=== PATIENT | male | born 1990 | race Two or more races ===

== ENCOUNTER 2017-01-08 17:39 | Emergency (ER) | payer OTHER ==
--- NOTE | 2017-01-08 17:49 | ED Physician Chart ---
Chief Complaint/HPI - Patient Information Date Seen:: 01/08/17 Time Seen:: 17:30 Chief Complaint:: left toe infection History of Present Illness:: pt stubbed toe some weeks ago with partial toenail avulsion. now increasingly red, painful and swollen. ?fever. pt denies any other acute sx. Allergies:: sulfa. ?emesis with keflex? Historian:: Patient, Family Member Review:: Nurse's Note Reviewed Review of Systems - Review of Systems General/Constitutional: Other (all other ROS negative) Past Medical History - Past Medical History Family History: HTN Social History: Smoker, Alcohol, Single, Lives With Parents Surgical History: other (ortho) Psychiatricy History: None Medication: None Physical Exam - Physical Examination General/Constitutional: Awake, Well-developed, well-nourished, Alert, GCS 15, Non-toxic appearing, Ambulatory (VSS. physical exam findings are limited to the left great toe which has a loose toenail but still fairly attached. there is localized redness, mild swelling, and tenderness. the feet have terrible hygiene with foul smell and dirty skin. no other toes are infected and there is no necrosis or ulceration.) Other Extremities comments:: the left great toe doesnt appear deformed or angulated andf there is no ecchymoses. Assessment - Assessment General Assessment: left great toe cellulitis vs inflammation secondary to recent trauma. ED Septic Shock - . Is Septic Shock (SBP<90, OR Lactate>4 mmol\L) present?: No Reassessment (Disposition) - Reassessment Reassessment Condition:: Unchanged - Diagnosis Diagnosis:: left great toe cellulitis - Aftercare/Follow up Instructions Aftercare/Follow-Up Instructions:: Refer to Discharge Instructions, Counseled pt & family regarding lab results/diagnosis & need follow up (urged cleaning toe and keeping feet clean in future, clean sox would be beneficial, or open toed shoe. do not attempt to remove nail. see clinic doctor for routine followup.) Medication Prescribed:: clindamycin 300mg tid with food x 7 days - Patient Disposition Discharge/Transfer:: Home Condition at Disposition:: Stable ED Discharge Plan - Patient Disposition Admit/Discharge/Transfer: PT DISCHARGED HOME Condition at Disposition: Stable
== END 2017-01-08 18:12 | disposition home or self-care (01) ==
LOC: ER 17:39
DX: L03.032 Cellulitis of left toe (principal); I10 Essential (primary) hypertension; F17.200 Nicotine dependence, unspecified, uncomplicated; Z88.2 Allergy status to sulfonamides
CPT/HCPCS: Z7502

== ENCOUNTER 2017-03-27 21:26 | Emergency (ER) | payer OTHER ==
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
== END 2017-03-27 23:03 | disposition home or self-care (01) ==
LOC: ER 21:26
DX: T63.301A Toxic effect of unspecified spider venom, accidental (unintentional), initial encounter (principal); Y92.89 Other specified places as the place of occurrence of the external cause; F17.200 Nicotine dependence, unspecified, uncomplicated
CPT/HCPCS: 99284; 96372 ×2; 87070; Q0162; J0690; J2270; Z7502

== ENCOUNTER 2017-05-12 10:45 | Emergency (ER) | payer OTHER ==
[2017-05-12] MEDS ORDERED: APAP/Codeine 300 mg/30 mg Tab PO STA (11:39)
[2017-05-12] MEDS ORDERED: Amoxicillin/Clavulanat 875/125 Tab PO ONE (12:01)
[2017-05-12] MEDS ORDERED: APAP/Codeine 300 mg/30 mg Tab ONE (12:04)
[2017-05-12] MEDS ORDERED: Amoxicillin/Clavulanat 875/125 Tab ONE (12:04)
[2017-05-12 12:19] LABS: ANION GAP 9.3 (7.0-16.0); BUN - UREA NITROGEN 10 mg/dL (7-25); BUN/CREATININE RATIO 12.5; CALCIUM SERUM 9.6 mg/dL (8.6-10.3); CARBON DIOXIDE 31.9 mEq/L (21.0-31.0); CHLORIDE 99 mEq/L (98-107); CREATININE - SERUM 0.8 mg/dL (0.7-1.3); GLUCOSE 138 mg/dL (70-105); POTASSIUM SERUM 4.2 mEq/L (3.5-5.1); SODIUM SERUM 136 mEq/L (136-145)
[2017-05-12 12:23] LABS: % BASOPHILS 0.2 % (0.0-2.0); % EOSINOPHILS 1.1 % (0.0-5.0); % LYMPHOCYTES 18.2 % (20.0-50.0); % MONOCYTES 7.5 % (2.0-10.0); HEMATOCRIT 49.2 % (41.0-60); HEMOGLOBIN 16.4 gm/dL (12-16); MEAN CELL VOLUME 92.7 fl (80-99); MEAN CORPUSCULAR HEMOGLOBIN 30.9 pg (26.0-30.0); MEAN CORPUSCULAR HGB CONC 33.3 pg (28.0-36.0); MEAN PLATELET VOLUME 7.8 fl; NEUTROPHILE ABSOLUTE 8.1 Th/cmm (1.8-8.0); PLATELET COUNT 299 Th/cmm (150-400); RED BLOOD COUNT 5.31 Mil/cmm (4.30-5.70)
[2017-05-12] MEDS ORDERED: Amoxicillin/Clavulanat 875/125 Tab PO SCH (17:00)
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
== END 2017-05-12 12:37 | disposition home or self-care (01) ==
LOC: ER 10:45
DX: K05.10 Chronic gingivitis, plaque induced (principal); F20.9 Schizophrenia, unspecified
CPT/HCPCS: 36415-UA; 80048-TC; 83735-TC; 85025-TC; Z7502; Z7610

== ENCOUNTER 2017-10-07 14:30 | Inpatient (IN) | payer OTHER ==
[2017-10-07] MEDS ORDERED: Clindamycin 600mg/50mL 600 MG/50 ML BAG IV ONE (15:06)
[2017-10-07] MEDS ORDERED: Pantoprazole 40 mg EC Tab PO STA (15:07)
[2017-10-07] MEDS ORDERED: Sodium Chloride 0.9% 1,000 ML IV ONE (15:08)
[2017-10-07 15:29] LABS: % BASOPHILS 0.4 % (0.0-2.0); % EOSINOPHILS 2.1 % (0.0-5.0); % LYMPHOCYTES 21.3 % (20.0-50.0); % NEUTROPHILS 69.2 % (40.0-80.0); EOSINOPHILE ABSOLUTE 0.2 Th/cmm (0.1-0.4); HEMATOCRIT 42.3 % (41.0-60); HEMOGLOBIN 13.9 gm/dL (12-16); LYMPHOCYTE ABSOLUTE 1.8 Th/cmm (1.5-3.0); MEAN CELL VOLUME 90.7 fl (80-99); MEAN CORPUSCULAR HEMOGLOBIN 29.7 pg (26.0-30.0); MEAN CORPUSCULAR HGB CONC 32.8 pg (28.0-36.0); MEAN PLATELET VOLUME 7.6 fl; MONOCYTE ABSOLUTE 0.6 Th/cmm (0.3-1.0); NEUTROPHILE ABSOLUTE 5.7 Th/cmm (1.8-8.0); PLATELET COUNT 280 Th/cmm (150-400); RED BLOOD COUNT 4.67 Mil/cmm (4.30-5.70); RED CELL DISTRIBUTION WIDTH 12.4 % (11.5-20.0); WHITE BLOOD COUNT 8.3 Th/cmm (4.8-10.8)
[2017-10-07] MEDS ORDERED: Clindamycin 150 mg/mL 4mL Vial ONE (15:36)
[2017-10-07] MEDS ORDERED: Pantoprazole 40 mg EC Tab PO ONE (15:36)
[2017-10-07 15:41] LABS: ALB/GLOB RATIO 1.6 (1.0-1.8); ALBUMIN 4.1 gm/dL (4.2-5.5); ALKALINE PHOSPHATASE 48 U/L (34-104); ANION GAP 8.7 (7.0-16.0); BILIRUBIN,TOTAL 0.6 mg/dL (0.3-1.0); BUN - UREA NITROGEN 10 mg/dL (7-25); CALCIUM SERUM 9.4 mg/dL (8.6-10.3); CARBON DIOXIDE 25.4 mEq/L (21.0-31.0); CHLORIDE 104 mEq/L (98-107); CREATININE - SERUM 0.7 mg/dL (0.7-1.3); GFR AFRICAN-AMERICAN > 60.0 ml/min (>90); GFR NON AFRICAN-AMERICAN > 60.0 ml/min; GLUCOSE 114 mg/dL (70-105); POTASSIUM SERUM 3.1 mEq/L (3.5-5.1); SGOT 11 U/L (13-39); SGPT/ALT 11 U/L (7-52); SODIUM SERUM 135 mEq/L (136-145); TOTAL PROTEIN,SERUM 6.7 gm/dL (6.0-8.3)
[2017-10-07] MEDS ORDERED: Piperacillin Sodium/Tazobact 3.375 gm Vial IV ONE (15:47)
[2017-10-07] MEDS ORDERED: Potassium Chloride 20 mEq ER Tab PO ONE ×2 (16:03→16:29)
[2017-10-07 16:20] LABS: ALB/GLOB RATIO 1.9 (1.0-1.8); BILIRUBIN,DIRECT 0.16 mg/dL (0.0-0.2); BILIRUBIN,TOTAL 0.2 mg/dL (0.3-1.0); TOTAL PROTEIN,SERUM 6.1 gm/dL (6.0-8.3)
[2017-10-07] MEDS ORDERED: Potassium Chloride Elixir 20 mEq /15 mL UDC ONE (16:27)
[2017-10-07 19:28] LABS: URINE MICROSCOPIC INDICATED? YES; URINE SOURCE MIDSTREAM
[2017-10-07 19:31] LABS: URINE BILIRUBIN NEGATIVE (NEGATIVE); URINE BLOOD NEGATIVE (NEGATIVE); URINE GLUCOSE (UA) NEGATIVE (NEGATIVE); URINE KETONE NEGATIVE (NEGATIVE); URINE LEUKOCYTE ESTERASE NEGATIVE (NEGATIVE); URINE NITRATE NEGATIVE (NEGATIVE); URINE PH 6.5 (4.6 - 8.0); URINE PROTEIN NEGATIVE (NEGATIVE); URINE UROBILINOGEN 0.2 E.U./dL (0.2 - 1.0)
[2017-10-07 20:18] LABS: AMPHETAMINE URINE POSITIVE (NEGATIVE); CANNABINOID THC POSITIVE (NEGATIVE); METHAMPHETAMINES QUAL URINE POSITIVE (NEGATIVE)
[2017-10-07 20:19] LABS: BARBITURATES URINE NEGATIVE (NEGATIVE); BENZODIAZEPINES QUAL URINE NEGATIVE (NEGATIVE); COCAINE METABOLITE QUAL URINE NEGATIVE (NEGATIVE); METHADONE URINE NEGATIVE (NEGATIVE); OPIATES (MORPHINE) QUAL. URINE NEGATIVE (NEGATIVE); PHENCYCLIDINE (PCP) URINE NEGATIVE (NEGATIVE); TRICYCLICS (TCA) QUAL. URINE NEGATIVE (NEGATIVE)
[2017-10-07 21:28] LABS: A1C % 4.9 % (4.0-6.0)
[2017-10-07] MEDS ORDERED: Morphine Sulfate 2 mg/mL 1mL Syr IVP PRN (22:32)
--- NOTE | 2017-10-07 23:26 | Consultation ---
Consult Note - Consult Note Service Date: 10/07/17 Referring Physician: Anselmo Medina Consult Note: PHYSICIAN Consultation Note: Date of Admission: 10/07/17 Purpose of Consultation: b/l hand cellulitis Chief Complaint: Patient KANDY PENN was admitted to [facility] with LEFT HAND CELLULITIS. History of Present Illness: 27-year-old old male preesented for erythematous painful swelling of the ring finger of the both hands with pustules developed in last 7 days and were getting worse. On initial evaluation, his temperature was 98 degree F and WBC Count was 8,300. ID consult was called for antibiotic management. He had received vanco IV and Zosyn in the ER. Past Medical History: nonsignificant. Allergies Allergy/AdvReac Type Severity Reaction Status Date / Time Sulfa (Sulfonamide Allergy Verified 01/08/17 17:50 Antibiotics) Vital Signs Temp 98.4 F 10/07/17 21:25 Pulse 82 10/07/17 21:25 Resp 19 10/07/17 21:25 BP 115/67 10/07/17 21:25 Pulse Ox 98 10/07/17 21:25 Laboratory Results - last 24 hr 10/07/17 22:50 POC Glucose 133 H Home Medication Medication Instructions Recorded Type NK [No Home Meds] 10/07/17 History Current Medications Generic Name Dose Route Start Last Admin Trade Name Freq PRN Reason Stop Dose Admin Dextrose/Sodium Chloride 1,000 mls @ 75 mls/hr 10/07/17 22:45 D5-0.9%Ns IV 12/06/17 22:44 .[id number] HALLEY Vancomycin HCl 1 gm/ Sodium 250 mls @ 165 mls/hr 10/08/17 00:00 Chloride IV 10/08/17 01:30 ONCE ONE Miscellaneous 1 ea 10/07/17 22:29 Vancomycin Iv Per Pharmacy [facility] 12/06/17 22:28 PRN PRN PROTOCOL Morphine Sulfate 1 mg 10/07/17 22:32 Morphine IVP 12/06/17 22:31 Q4HR PRN pain Ondansetron HCl 4 mg 10/07/17 22:34 Zofran IV 12/06/17 22:33 Q6H PRN Nausea / Vomiting Review of Systems: A 12 point ROS was reviewed with the pertinent positive and negatives noted in the HPI. Physical Exam: GENERAL: The patient is comfortable lying in bed, not in acute distress. HEENT: Head is normocephalic, atraumatic. Oral cavity moist, pink tongue. Eyes: Pallor is present, no icterus. PERRLA, EOMI. NECK: Supple. No JVD or bruit. Trachea midline. CHEST: Bilateral breath sounds. No crackles or wheezing. HEART: S1, S2 within normal limits. Systolic murmur present. ABDOMEN: Soft, nontender, nondistended. Bowel sounds present. EXTREMITIES: No cyanosis, no clubbing, no edema. NEUROLOGICAL: Alert, awake, oriented x 3. Follows the command. SKIN: patient has pustules on the ring fingers of both hands. the pus was sent for the micro from respective sites. Left had erythema has extended to the adjacent area of the left hand. Assessment: 1. b/l hand cellulitis likely MRSA, MSSA or strep. 2. H/o recreations drug use. Plan: wound cs, blood cs, Dr Huynh, surgical consult. vanco IV as per pharmacy. wound care. bactroban. Thank you, Dr Medina for involving me in taking care of this patient. Signed, Aldo Sesay M.D. [id number]
[2017-10-07] MEDS ORDERED: Morphine Sulfate 2 mg/mL 1mL Syr ONE (23:56)
[2017-10-08] MEDS: D5-0.9%NS 1,000 ML IV SCH ×2 (00:18→14:19)
[2017-10-08 00:31] VITALS: BP 115/67
[2017-10-08 05:14] LABS: % BASOPHILS 0.4 % (0.0-2.0); % LYMPHOCYTES 24.3 % (20.0-50.0); % NEUTROPHILS 61.3 % (40.0-80.0); EOSINOPHILE ABSOLUTE 0.3 Th/cmm (0.1-0.4); HEMATOCRIT 38.9 % (41.0-60); HEMOGLOBIN 12.9 gm/dL (12-16); LYMPHOCYTE ABSOLUTE 1.8 Th/cmm (1.5-3.0); MEAN CELL VOLUME 90.8 fl (80-99); MEAN CORPUSCULAR HGB CONC 33.1 pg (28.0-36.0); MEAN PLATELET VOLUME 7.6 fl; MONOCYTE ABSOLUTE 0.7 Th/cmm (0.3-1.0); NEUTROPHILE ABSOLUTE 4.6 Th/cmm (1.8-8.0); PLATELET COUNT 256 Th/cmm (150-400); RED BLOOD COUNT 4.28 Mil/cmm (4.30-5.70); RED CELL DISTRIBUTION WIDTH 12.5 % (11.5-20.0); WHITE BLOOD COUNT 7.4 Th/cmm (4.8-10.8)
[2017-10-08 05:24] LABS: ANION GAP 7.3 (7.0-16.0); BUN - UREA NITROGEN 7 mg/dL (7-25); CALCIUM SERUM 8.7 mg/dL (8.6-10.3); CARBON DIOXIDE 24.4 mEq/L (21.0-31.0); CHLORIDE 110 mEq/L (98-107); CHOLESTEROL 72 mg/dL (<200); CREATININE - SERUM 0.6 mg/dL (0.7-1.3); GFR AFRICAN-AMERICAN > 60.0 ml/min (>90); GFR NON AFRICAN-AMERICAN > 60.0 ml/min; GLUCOSE 106 mg/dL (70-105); HDL -HIGH DENSITY LIPOPROTEIN 29 mg/dL (23-92); POTASSIUM SERUM 3.7 mEq/L (3.5-5.1); SODIUM SERUM 138 mEq/L (136-145); TRIGLYCERIDES 45 mg/dL (<150)
--- NOTE | 2017-10-08 08:46 | Consultation ---
DATE OF CONSULTATION: 10/08/2017 SURGICAL CONSULTATION NOTE REFERRING PHYSICIAN: Dr. Medina. REASON FOR CONSULTATION: Infection in both hands. Thank you for referring this patient to me. HISTORY OF PRESENT ILLNESS: This is a 27-year-old homeless male, who comes in to the ER because of worsening infection in both hands present for about a week. The patient has been seen by Dr. Aldo Sesay, Infectious Disease business solutions consultant and started on antibiotics. He has history of amphetamine and cannabis use and is shown positive on the drug screen. LABORATORY STUDIES: CBC is normal. PHYSICAL EXAMINATION: areas of abscess formation on the right middle finger and the right thumb and on the left middle finger. This has purulent content under the skin evidenced by pustule formation. Otherwise, the patient is cooperative. PLAN: We will do excisional debridement and identify the organisms, which is likely methicillin-resistant Staphylococcus aureus. Informed consent discussed with the patient. JOB# [id number]
[2017-10-08 09:17] LABS: URINE CLARITY CLEAR (CLEAR); URINE COLOR YELLOW
[2017-10-08 09:19] LABS: URINE EPITHELIAL CELLS OCCASIONAL /lpf (FEW); URINE WBC 0-2 /hpf (0-5)
--- NOTE | 2017-10-08 09:20 | Diagnostic Imaging Report ---
CHEST X-RAY: AP view INDICATION: pain COMPARISON: None FINDINGS: Suboptimal lung volumes are noted. There is no focal consolidation or pleural effusions . An azygos fissure is incidentally noted. The heart is normal in size. The osseous structures demonstrate no acute abnormalities. IMPRESSION: No focal consolidation identified.
[2017-10-08] MEDS ORDERED: Propofol 10 mg/mL 20mL Vial **SURGERY USE ONLY IV ONE (12:05)
--- NOTE | 2017-10-08 12:35 | Diagnostic Imaging Report ---
Carotid ultrasound HISTORY: Syncope COMPARISON: None Technique: Longitudinal and transverse sonographic sector images of the carotid arteries were obtained with doppler analysis. FINDINGS: Exam of the right side demonstrates mild atherosclerotic vascular disease. There is increased velocity of the proximal right common carotid artery at 165 cm/second. Exam of the left side demonstrates mild joint athetotic vascular disease. There is increased velocity of the left proximal common carotid artery 137 cm/second. The velocity ratios are within normal limits. Antegrade vertebral artery flow is demonstrated bilaterally. IMPRESSION: Mild bilateral atherosclerotic vascular disease. There is are mild increased velocity of the bilateral proximal CCAs which is nonspecific, as no significant vessel narrowing is identified in these region or other regions.
[2017-10-08] MEDS ORDERED: Venelex 60gm Tube TP ONE (12:54)
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
--- NOTE | 2017-10-08 16:45 | Cardiology ---
10/07/[address] Trujillo. PROCEDURE: Echocardiogram. M-MODE ECHOCARDIOGRAM: Mitral valve, anterior leaflet of mitral valve shows normal excursion, EF velocity. Posterior leaflet of the mitral valve shows normal excursion. Left ventricular posterior wall shows increased thickness, normal excursion. Interventricular septum shows increased thickness, normal excursion, hypertrophy of the left ventricle, ejection fraction 65%. Left atrium normal. Aortic root shows normal dimension, normal excursion of aortic leaflets. CONCLUSION: Hypertrophy of the left ventricle, ejection fraction 65%. 2D ECHO: Long axis view showed normal sized left ventricle with hypertrophy of the left ventricle. Left atrium normal. Aortic root shows normal dimension, normal excursion of aortic leaflets. Short axis view of mitral valve normal. Short axis view of aortic valve normal. Apical four chamber view showed normal sized left ventricle, left atrium, right ventricle, right atrium, tricuspid and mitral valve. Ejection fraction 65%. CONCLUSION: Hypertrophy of the left ventricle, ejection fraction 65%. Doppler study shows trace mitral regurgitation, mild tricuspid regurgitation, right ventricular systolic pressure 41 mmHg. [facility]# [id number]
--- NOTE | 2017-10-08 18:30 | History & Physical ---
ADMIT DATE: 10/07/2017 HISTORY AND PHYSICAL AND MEDICAL CLEARANCE HISTORY OF PRESENT ILLNESS: This 27-year-old homeless male, comes to the Emergency Room with worsening infection of his both hands for about a week and the patient has been abusing drugs. He has been using crystal meth and he has been using marijuana, which were positive on his drug screen. The patient is not taking care of himself and he presented to the ER with multiple ulcerated wounds on the dorsum of his hand and he particularly had this painful swelling on his right ring finger, a pustule developed 7 days ago, and it is getting worse. Initially, the patient was seen in the Emergency Room by the ER doctor, who started him on vancomycin and Zosyn. The patient was examined. REVIEW OF SYSTEMS: A 12-point review of systems was noted as in the history of present illness. PHYSICAL EXAMINATION: VITAL SIGNS: Stable. GENERAL: The patient is comfortable, lying in the bed, not in acute distress. HEAD: Normal. ENT: Normal. NECK: Supple, nontender. LUNGS: Clear. CARDIOVASCULAR SYSTEM: S1 and S2 heard. Systolic murmur was present. ABDOMEN: Soft. EXTREMITIES: Reveal no cyanosis, no clubbing, and no edema. NEUROLOGIC: The patient is oriented x3. SKIN: On hand examination, he had pustules on the ring finger of both hands and also cellulitis of both the hands, erythema extended to the adjacent left as well as right hand. DIAGNOSES: Bilateral hand cellulitis, probably methicillin-resistant Staphylococcus aureus; history of recreational drug abuse, rule out sepsis, and the patient needs an excisional debridement. I had called Dr. Huynh for that, Dr. Aldo Sesay for an ID consult, and I will follow the patient. The patient is medically cleared for the excisional debridement. JOB# [id number]
--- NOTE | 2017-10-09 01:28 | Consultation ---
DATE OF CONSULTATION: 10/08/2017 REASON FOR CONSULTATION: Psych eval. HISTORY OF PRESENT ILLNESS: This 27-year-old male came to the ER complaining of pus, discharge, swelling, cellulitis in upper extremities. Apparently, [place], feels he may have touched a plant that caused this, as he knows someone who had the same symptoms. The patient on [id number] alludes to mild depression, fair sleep, poor appetite. He has been hopeful, and motivated. Notes that he suffers from schizophrenia, but self talks and does seem to "self cope." Mood "pretty good," other than some moments of irritability, alludes to some pain in the last night in his hands, but states he is doing better because the pain is better. Okay appetite. PAST PSYCHIATRIC HISTORY: States he was admitted to [facility] in [place] many years ago because of suicidality, but he knows that he just said that to avoid going to long-term at the time. FAMILY HISTORY: Mother with PTSD and depression and states that he sometimes lives with his mother. SOCIAL HISTORY: Born in [place], single, no kids, using tobacco, marijuana, and amphetamine. MEDICATIONS: Noted. He states he does well historically on Zyprexa and Prozac. MENTAL STATUS EXAMINATION: Disheveled, unkempt, multiple tattoos, swelling noted to upper extremities Mood "pretty good." Affect constricted. Thought processes were linear. No SI, no intent, no plan. No HI, no intent, no plan. No evidence of any psychotic symptoms. Denies voices, no paranoia. Insight and judgment fair. He is motivated. Again, he is motivated for recovery. PROVISIONAL DIAGNOSES: Schizophrenia, depression, unspecified; substance-induced mood disorder; substance-induced psychosis; nicotine use disorder, unspecified; marijuana use disorder, unspecified; meth use disorder, severe; poor medication and treatment compliance. Under medical as noted cellulitis. RECOMMENDATIONS AND PLAN: No 5150 criteria, he is not suicidal, he is not homicidal, he is not disabled. He is eating on his own volition. He knows where to retrieve food. He is not psychotic at this time. We will restart Zyprexa and Prozac. JOB# [id number]
--- NOTE | 2017-10-09 10:49 | General Progress Note ---
Subjective - Review of Systems Service Date: 10/09/17 Events since last encounter: continue oral antibiotics and local wound care Objective - Results Result Diagrams: 10/08/17 04:50 10/08/17 04:50 Recent Labs: Laboratory Last Values WBC 7.4 Th/cmm (4.8-10.8) 10/08/17 04:50 RBC 4.28 Mil/cmm (4.30-5.70) L 10/08/17 04:50 Hgb 12.9 gm/dL (12-16) 10/08/17 04:50 Hct 38.9 % (41.0-60) L 10/08/17 04:50 MCV 90.8 fl (80-99) 10/08/17 04:50 MCH 30.0 pg (26.0-30.0) 10/08/17 04:50 MCHC Differential 33.1 pg (28.0-36.0) 10/08/17 04:50 RDW 12.5 % (11.5-20.0) 10/08/17 04:50 Plt Count 256 Th/cmm (150-400) 10/08/17 04:50 MPV 7.6 fl 10/08/17 04:50 Neutrophils % 61.3 % (40.0-80.0) 10/08/17 04:50 Lymphocytes % 24.3 % (20.0-50.0) 10/08/17 04:50 Monocytes % 10.0 % (2.0-10.0) 10/08/17 04:50 Eosinophils % 4.0 % (0.0-5.0) 10/08/17 04:50 Basophils % 0.4 % (0.0-2.0) 10/08/17 04:50 Sodium 138 mEq/L (136-145) 10/08/17 04:50 Potassium 3.7 mEq/L (3.5-5.1) 10/08/17 04:50 Chloride 110 mEq/L (98-107) H 10/08/17 04:50 Carbon Dioxide 24.4 mEq/L (21.0-31.0) 10/08/17 04:50 Anion Gap 7.3 (7.0-16.0) 10/08/17 04:50 BUN 7 mg/dL (7-25) 10/08/17 04:50 Creatinine 0.6 mg/dL (0.7-1.3) L 10/08/17 04:50 Est GFR ( Amer) > 60.0 ml/min (>90) 10/08/17 04:50 Est GFR (Non-Af Amer) > 60.0 ml/min 10/08/17 04:50 BUN/Creatinine Ratio 11.7 10/08/17 04:50 Glucose 106 mg/dL (70-105) H 10/08/17 04:50 POC Glucose 133 MG/DL (70 - 105) H 10/07/17 22:50 Hemoglobin A1c % 4.9 % (4.0-6.0) 10/07/17 15:16 Whole Bld Lactic Acid 1.43 mmol/L (0.60-1.99) 10/07/17 17:20 Calcium 8.7 mg/dL (8.6-10.3) 10/08/17 04:50 Magnesium 1.8 mg/dL (1.9-2.7) L 10/07/17 15:16 Total Bilirubin 0.2 mg/dL (0.3-1.0) L 10/07/17 15:16 Direct Bilirubin 0.16 mg/dL (0.0-0.2) 10/07/17 15:16 AST 12 U/L (13-39) L 10/07/17 15:16 ALT 10 U/L (7-52) 10/07/17 15:16 Alkaline Phosphatase 47 U/L (34-104) 10/07/17 15:16 C-Reactive Protein 7.6 mg/dL (0.0-0.9) H 10/07/17 15:16 Total Protein 6.1 gm/dL (6.0-8.3) 10/07/17 15:16 Albumin 4.0 gm/dL (4.2-5.5) L 10/07/17 15:16 Globulin 2.1 gm/dL 10/07/17 15:16 Albumin/Globulin Ratio 1.9 (1.0-1.8) H 10/07/17 15:16 Triglycerides 45 mg/dL (<150) 10/08/17 04:50 Cholesterol 72 mg/dL (<200) 10/08/17 04:50 LDL Cholesterol Direct 39 mg/dL (75-193) L 10/08/17 04:50 HDL Cholesterol 29 mg/dL (23-92) 10/08/17 04:50 Lipase 29 U/L (11-82) 10/07/17 15:16 Free T4 1.03 ng/dL (0.82-1.77) 10/07/17 15:16 TSH 0.45 uIU/ml (0.34-5.60) 10/08/17 04:50 Urine Source MIDSTREAM 10/07/17 17:30 Urine Color YELLOW 10/07/17 17:30 Urine Clarity CLEAR (CLEAR) 10/07/17 17:30 Urine pH 6.5 (4.6 - 8.0) 10/07/17 17:30 Ur Specific Standish <= 1.005 (1.005-1.030) 10/07/17 17:30 Urine Protein NEGATIVE mg/dL (NEGATIVE) 10/07/17 17:30 Urine Glucose (UA) NEGATIVE mg/dL (NEGATIVE) 10/07/17 17:30 Urine Ketones NEGATIVE mg/dL (NEGATIVE) 10/07/17 17:30 Urine Blood NEGATIVE (NEGATIVE) 10/07/17 17:30 Urine Nitrate NEGATIVE (NEGATIVE) 10/07/17 17:30 Urine Bilirubin NEGATIVE (NEGATIVE) 10/07/17 17:30 Urine Urobilinogen 0.2 E.U./dL (0.2 - 1.0) 10/07/17 17:30 Ur Leukocyte Esterase NEGATIVE (NEGATIVE) 10/07/17 17:30 Urine WBC 0-2 /hpf (0-5) 10/07/17 17:30 Ur Epithelial Cells OCCASIONAL /lpf (FEW) 10/07/17 17:30 Urine Opiates Screen NEGATIVE (NEGATIVE) 10/07/17 17:30 Urine Methadone Screen NEGATIVE (NEGATIVE) 10/07/17 17:30 Ur Barbiturates Screen NEGATIVE (NEGATIVE) 10/07/17 17:30 Ur Tricyclics Screen NEGATIVE (NEGATIVE) 10/07/17 17:30 Ur Phencyclidine Scrn NEGATIVE (NEGATIVE) 10/07/17 17:30 Amphetamines Screen POSITIVE (NEGATIVE) H 10/07/17 17:30 U Methamphetamines Scrn POSITIVE (NEGATIVE) H 10/07/17 17:30 U Benzodiazepines Scrn NEGATIVE (NEGATIVE) 10/07/17 17:30 U Cocaine Metab Screen NEGATIVE (NEGATIVE) 10/07/17 17:30 U Cannabinoids Screen POSITIVE (NEGATIVE) H 10/07/17 17:30 - Physical Exam Vitals and I&O: Vital Signs Temp 97.3 F 10/09/17 04:00 Pulse 62 10/09/17 04:00 Resp 18 10/09/17 04:00 BP 116/69 10/09/17 04:00 Pulse Ox 99 10/09/17 04:00 Intake & Output 10/08/17 10/09/17 10/09/17 18:59 06:59 18:59 Intake Total 1000 500 Balance 1000 500 Weight (lbs) 70.942 kg 72.484 kg Intake: Intake, IV Amount 1000 300 D5-0.9%Ns 1,000 ml @ 75 1000 mls/hr IV .[id number] [facility] Rx #:[id number] Piperacillin Sodium/ 50 Tazobact 3.375 gm In Sodium Chloride 0.9% 50 ml @ 100 mls/hr IV Q8HR [facility] Rx#:[id number] Vancomycin HCl 1.25 gm In 250 Sodium Chloride 0.9% 250 ml @ 165 mls/hr IV Q8H [facility] Rx#:[id number] Oral 200 Other: # Voids 2 0 # Bowel Movements 0 Active Medications: Current Medications Fluoxetine HCl (Prozac) 10 mg PO DAILY [facility] PRN Reason: Protocol Stop: 12/08/17 08:59 Dextrose/Sodium Chloride (D5-0.9%Ns) 1,000 mls @ 75 mls/hr IV .[id number] [facility] Stop: 12/06/17 22:44 Last Admin: 10/08/17 14:19 Dose: 75 mls/hr Piperacillin Sod/Tazobactam (Sod 3.375 gm/ Sodium Chloride) 50 mls @ 100 mls/ hr IV Q8HR [facility] Stop: 12/07/17 20:59 Last Admin: 10/09/17 05:42 Dose: 100 mls/hr Vancomycin HCl 1.25 gm/ Sodium (Chloride) 250 mls @ 165 mls/hr IV Q8H [facility] Stop: 12/07/17 17:59 Last Admin: 10/09/17 02:26 Dose: 165 mls/hr Miscellaneous (Vancomycin Iv Per Pharmacy) 1 ea [facility] PRN PRN PRN Reason: PROTOCOL Stop: 12/06/17 22:28 Morphine Sulfate (Morphine) 1 mg IVP Q4HR PRN PRN Reason: pain Stop: 12/06/17 22:31 Last Admin: 10/08/17 00:18 Dose: 1 mg Mupirocin (Bactroban Oint) 1 appl TP BID [facility] Stop: 12/07/17 00:14 Last Admin: 10/08/17 18:13 Dose: 1 appl Mupirocin (Bactroban Oint) 1 appl NS BID [facility] Stop: 10/13/17 09:01 Last Admin: 10/08/17 18:18 Dose: 1 appl Olanzapine (Zyprexa) 10 mg PO HS [facility] PRN Reason: Protocol Stop: 12/07/17 20:59 Ondansetron HCl (Zofran) 4 mg IV Q6H PRN PRN Reason: Nausea / Vomiting Stop: 12/06/17 22:33 - Procedures Procedures: Procedures Procedure Code Date DENTAL SURGERY PROCEDURE 02417 05/12/17 Assessment/Plan - Problem List Patient Problems: All Active Problems SWELLING, REDNESS AND PAIN TO BOTH HANDS (Acute)
--- NOTE | 2017-10-09 11:06 | Operative Report ---
DATE OF SURGERY: 10/08/2017 PREOPERATIVE DIAGNOSIS: Infected abscesses of the right middle finger, right thumb and left middle finger. INDICATIONS FOR SURGERY: The patient came in with abscess formation in both hands for 1 week. The patient on amphetamine and cannabis and is homeless. OPERATION DONE: 1. Excisional debridement of abscess, right middle finger. 2. Excisional debridement of abscess, right thumb. 3. Excisional debridement of abscess, left middle finger. SURGEON: Rogelio Huynh MD. ANESTHESIA: MAC. PROCEDURE: The patient was given IV sedation. Both hands were prepped with Betadine and draped. The abscesses were completely excised. Cultures were taken. This involved the dorsal aspect of the right middle finger at the middle phalanx and the base of the right thumb at the hypothenar eminence. Also, the left middle finger debridement was done. Cultures likewise were taken. This appeared to be likely staph infection. JOB# [id number]
--- NOTE | 2017-10-09 16:08 | Internal Medicine Prog Note ---
Internal Medicine Subjective - Subjective Service Date: 10/09/17 Patient seen and examined:: with staff Patient is:: awake, verbal Per staff patient has:: tolerating meds Internal Medicine Objective - Results Result Diagrams: 10/08/17 04:50 10/08/17 04:50 Recent Labs: Laboratory Last Values WBC 7.4 Th/cmm (4.8-10.8) 10/08/17 04:50 RBC 4.28 Mil/cmm (4.30-5.70) L 10/08/17 04:50 Hgb 12.9 gm/dL (12-16) 10/08/17 04:50 Hct 38.9 % (41.0-60) L 10/08/17 04:50 MCV 90.8 fl (80-99) 10/08/17 04:50 MCH 30.0 pg (26.0-30.0) 10/08/17 04:50 MCHC Differential 33.1 pg (28.0-36.0) 10/08/17 04:50 RDW 12.5 % (11.5-20.0) 10/08/17 04:50 Plt Count 256 Th/cmm (150-400) 10/08/17 04:50 MPV 7.6 fl 10/08/17 04:50 Neutrophils % 61.3 % (40.0-80.0) 10/08/17 04:50 Lymphocytes % 24.3 % (20.0-50.0) 10/08/17 04:50 Monocytes % 10.0 % (2.0-10.0) 10/08/17 04:50 Eosinophils % 4.0 % (0.0-5.0) 10/08/17 04:50 Basophils % 0.4 % (0.0-2.0) 10/08/17 04:50 Sodium 138 mEq/L (136-145) 10/08/17 04:50 Potassium 3.7 mEq/L (3.5-5.1) 10/08/17 04:50 Chloride 110 mEq/L (98-107) H 10/08/17 04:50 Carbon Dioxide 24.4 mEq/L (21.0-31.0) 10/08/17 04:50 Anion Gap 7.3 (7.0-16.0) 10/08/17 04:50 BUN 7 mg/dL (7-25) 10/08/17 04:50 Creatinine 0.6 mg/dL (0.7-1.3) L 10/08/17 04:50 Est GFR ( Amer) > 60.0 ml/min (>90) 10/08/17 04:50 Est GFR (Non-Af Amer) > 60.0 ml/min 10/08/17 04:50 BUN/Creatinine Ratio 11.7 10/08/17 04:50 Glucose 106 mg/dL (70-105) H 10/08/17 04:50 POC Glucose 133 MG/DL (70 - 105) H 10/07/17 22:50 Hemoglobin A1c % 4.9 % (4.0-6.0) 10/07/17 15:16 Whole Bld Lactic Acid 1.43 mmol/L (0.60-1.99) 10/07/17 17:20 Calcium 8.7 mg/dL (8.6-10.3) 10/08/17 04:50 Magnesium 1.8 mg/dL (1.9-2.7) L 10/07/17 15:16 Total Bilirubin 0.2 mg/dL (0.3-1.0) L 10/07/17 15:16 Direct Bilirubin 0.16 mg/dL (0.0-0.2) 10/07/17 15:16 AST 12 U/L (13-39) L 10/07/17 15:16 ALT 10 U/L (7-52) 10/07/17 15:16 Alkaline Phosphatase 47 U/L (34-104) 10/07/17 15:16 C-Reactive Protein 7.6 mg/dL (0.0-0.9) H 10/07/17 15:16 Total Protein 6.1 gm/dL (6.0-8.3) 10/07/17 15:16 Albumin 4.0 gm/dL (4.2-5.5) L 10/07/17 15:16 Globulin 2.1 gm/dL 10/07/17 15:16 Albumin/Globulin Ratio 1.9 (1.0-1.8) H 10/07/17 15:16 Triglycerides 45 mg/dL (<150) 10/08/17 04:50 Cholesterol 72 mg/dL (<200) 10/08/17 04:50 LDL Cholesterol Direct 39 mg/dL (75-193) L 10/08/17 04:50 HDL Cholesterol 29 mg/dL (23-92) 10/08/17 04:50 Lipase 29 U/L (11-82) 10/07/17 15:16 Free T4 1.03 ng/dL (0.82-1.77) 10/07/17 15:16 TSH 0.45 uIU/ml (0.34-5.60) 10/08/17 04:50 Urine Source MIDSTREAM 10/07/17 17:30 Urine Color YELLOW 10/07/17 17:30 Urine Clarity CLEAR (CLEAR) 10/07/17 17:30 Urine pH 6.5 (4.6 - 8.0) 10/07/17 17:30 Ur Specific [place] <= 1.005 (1.005-1.030) 10/07/17 17:30 Urine Protein NEGATIVE mg/dL (NEGATIVE) 10/07/17 17:30 Urine Glucose (UA) NEGATIVE mg/dL (NEGATIVE) 10/07/17 17:30 Urine Ketones NEGATIVE mg/dL (NEGATIVE) 10/07/17 17:30 Urine Blood NEGATIVE (NEGATIVE) 10/07/17 17:30 Urine Nitrate NEGATIVE (NEGATIVE) 10/07/17 17:30 Urine Bilirubin NEGATIVE (NEGATIVE) 10/07/17 17:30 Urine Urobilinogen 0.2 E.U./dL (0.2 - 1.0) 10/07/17 17:30 Ur Leukocyte Esterase NEGATIVE (NEGATIVE) 10/07/17 17:30 Urine WBC 0-2 /hpf (0-5) 10/07/17 17:30 Ur Epithelial Cells OCCASIONAL /lpf (FEW) 10/07/17 17:30 Urine Opiates Screen NEGATIVE (NEGATIVE) 10/07/17 17:30 Urine Methadone Screen NEGATIVE (NEGATIVE) 10/07/17 17:30 Ur Barbiturates Screen NEGATIVE (NEGATIVE) 10/07/17 17:30 Ur Tricyclics Screen NEGATIVE (NEGATIVE) 10/07/17 17:30 Ur Phencyclidine Scrn NEGATIVE (NEGATIVE) 10/07/17 17:30 Amphetamines Screen POSITIVE (NEGATIVE) H 10/07/17 17:30 U Methamphetamines Scrn POSITIVE (NEGATIVE) H 10/07/17 17:30 U Benzodiazepines Scrn NEGATIVE (NEGATIVE) 10/07/17 17:30 U Cocaine Metab Screen NEGATIVE (NEGATIVE) 10/07/17 17:30 U Cannabinoids Screen POSITIVE (NEGATIVE) H 10/07/17 17:30 - Physical Exam Vitals and I&O: Vital Signs Temp 97.8 F 10/09/17 08:00 Pulse 97 10/09/17 08:00 Resp 20 10/09/17 08:00 BP 131/82 10/09/17 08:00 Pulse Ox 98 10/09/17 08:00 Intake & Output 10/08/17 10/09/17 10/09/17 18:59 06:59 18:59 Intake Total 1000 750 Balance 1000 750 Weight (lbs) 156 lb 6.4 oz 159 lb 12.8 oz 159 lb Intake: Intake, IV Amount 1000 550 D5-0.9%Ns 1,000 ml @ 75 1000 mls/hr IV .[id number] [facility] Rx #:[id number] Piperacillin Sodium/ 50 Tazobact 3.375 gm In Sodium Chloride 0.9% 50 ml @ 100 mls/hr IV Q8HR [facility] Rx#:[id number] Vancomycin HCl 1.25 gm In 500 Sodium Chloride 0.9% 250 ml @ 165 mls/hr IV Q8H [facility] Rx#:[id number] Oral 200 Other: # Voids 2 0 3 # Bowel Movements 0 Stool Characteristics Soft Active Medications: Current Medications Fluoxetine HCl (Prozac) 10 mg PO DAILY [facility] PRN Reason: Protocol Stop: 12/08/17 08:59 Dextrose/Sodium Chloride (D5-0.9%Ns) 1,000 mls @ 75 mls/hr IV .[id number] [facility] Stop: 12/06/17 22:44 Last Admin: 10/08/17 14:19 Dose: 75 mls/hr Piperacillin Sod/Tazobactam (Sod 3.375 gm/ Sodium Chloride) 50 mls @ 100 mls/ hr IV Q8HR [facility] Stop: 12/07/17 20:59 Last Admin: 10/09/17 05:42 Dose: 100 mls/hr Vancomycin HCl 1.25 gm/ Sodium (Chloride) 250 mls @ 165 mls/hr IV Q8H [facility] Stop: 12/07/17 17:59 Last Admin: 10/09/17 11:03 Dose: 165 mls/hr Miscellaneous (Vancomycin Iv Per Pharmacy) 1 ea [facility] PRN PRN PRN Reason: PROTOCOL Stop: 12/06/17 22:28 Morphine Sulfate (Morphine) 1 mg IVP Q4HR PRN PRN Reason: pain Stop: 12/06/17 22:31 Last Admin: 10/08/17 00:18 Dose: 1 mg Mupirocin (Bactroban Oint) 1 appl TP BID [facility] Stop: 12/07/17 00:14 Last Admin: 10/09/17 11:00 Dose: 1 appl Mupirocin (Bactroban Oint) 1 appl NS BID [facility] Stop: 10/13/17 09:01 Last Admin: 10/08/17 18:18 Dose: 1 appl Olanzapine (Zyprexa) 10 mg PO HS [facility] PRN Reason: Protocol Stop: 12/07/17 20:59 Ondansetron HCl (Zofran) 4 mg IV Q6H PRN PRN Reason: Nausea / Vomiting Stop: 12/06/17 22:33 General: alert HEENT: NC/AT, PERRLA Neck: Supple Lungs: CTAB Cardiovascular: RRR, Normal S1, Normal S2, without murmur Abdomen: soft, non-tender, non-distended, positive bowel sound - Procedures Procedures: Procedures Procedure Code Date GALEN SUBQ TISSUE 20 SQ CM/< 57810 10/07/17 DENTAL SURGERY PROCEDURE 58520 05/12/17 EXCISION OF L HAND SUBCU/FASCIA, OPEN APPROACH [id number] 10/07/17 EXCISION OF R HAND SUBCU/FASCIA, OPEN APPROACH [id number] 10/07/17 Internal Medicine Assmt/Plan - Assessment Assessment: 1. b/l hand cellulitis likely MRSA, MSSA or strep. 2. H/o recreations drug use. 3. Homelessness - Plan Plan: continue ivabx as per id dc planning in am continue current plan of care
[2017-10-10] MEDS ORDERED: Propofol 10 mg/mL 20mL Vial **SURGERY USE ONLY IV ONE (07:50)
--- NOTE | 2017-10-10 14:16 | Pathology Report ---
[id number] Collection Date: 10/08/2017 Surgeon: Dr. Francis Huynh Specimen Description: 1. Right hand debridement 2. Left hand debridement Gross Description: Part I: Received in formalin is a 1.8 x 0.7 x 0.2 cm oval excision of dark bonilla skin. Sectioning shows focal degenerative changes. Totally submitted in one cassette labeled A. Gross Description: Part II: Received in formalin is a 0.7 x 0.5 x 0.1 cm portion of coyne-bonilla skin. Totally submitted in one cassette labeled B. Microscopic Description: Part I: The histologic sections show partially ulcerated skin with extensive suppurative inflammation present, consisting of large collections of neutrophils with a necrotic background. Diagnosis: Part I: Ulcerated, necrotic skin consistent with debridement (right hand). Microscopic Description: Part II: The histologic sections show superficial portions of hyperkeratotic skin with areas of suppurative inflammation, consisting of collections of neutrophils with necrosis present. Diagnosis: Part II: Superficial skin with necrosis, consistent with debridement (left hand). JOB# [id number]
--- NOTE | 2017-10-10 14:52 | General Progress Note ---
Subjective - Review of Systems Service Date: 10/10/17 Events since last encounter: local wound care ordered Objective - Results Result Diagrams: 10/08/17 04:50 10/08/17 04:50 Recent Labs: Laboratory Last Values WBC 7.4 Th/cmm (4.8-10.8) 10/08/17 04:50 RBC 4.28 Mil/cmm (4.30-5.70) L 10/08/17 04:50 Hgb 12.9 gm/dL (12-16) 10/08/17 04:50 Hct 38.9 % (41.0-60) L 10/08/17 04:50 MCV 90.8 fl (80-99) 10/08/17 04:50 MCH 30.0 pg (26.0-30.0) 10/08/17 04:50 MCHC Differential 33.1 pg (28.0-36.0) 10/08/17 04:50 RDW 12.5 % (11.5-20.0) 10/08/17 04:50 Plt Count 256 Th/cmm (150-400) 10/08/17 04:50 MPV 7.6 fl 10/08/17 04:50 Neutrophils % 61.3 % (40.0-80.0) 10/08/17 04:50 Lymphocytes % 24.3 % (20.0-50.0) 10/08/17 04:50 Monocytes % 10.0 % (2.0-10.0) 10/08/17 04:50 Eosinophils % 4.0 % (0.0-5.0) 10/08/17 04:50 Basophils % 0.4 % (0.0-2.0) 10/08/17 04:50 Sodium 138 mEq/L (136-145) 10/08/17 04:50 Potassium 3.7 mEq/L (3.5-5.1) 10/08/17 04:50 Chloride 110 mEq/L (98-107) H 10/08/17 04:50 Carbon Dioxide 24.4 mEq/L (21.0-31.0) 10/08/17 04:50 Anion Gap 7.3 (7.0-16.0) 10/08/17 04:50 BUN 7 mg/dL (7-25) 10/08/17 04:50 Creatinine 0.6 mg/dL (0.7-1.3) L 10/08/17 04:50 Est GFR ( Amer) > 60.0 ml/min (>90) 10/08/17 04:50 Est GFR (Non-Af Amer) > 60.0 ml/min 10/08/17 04:50 BUN/Creatinine Ratio 11.7 10/08/17 04:50 Glucose 106 mg/dL (70-105) H 10/08/17 04:50 POC Glucose 133 MG/DL (70 - 105) H 10/07/17 22:50 Hemoglobin A1c % 4.9 % (4.0-6.0) 10/07/17 15:16 Whole Bld Lactic Acid 1.43 mmol/L (0.60-1.99) 10/07/17 17:20 Calcium 8.7 mg/dL (8.6-10.3) 10/08/17 04:50 Magnesium 1.8 mg/dL (1.9-2.7) L 10/07/17 15:16 Total Bilirubin 0.2 mg/dL (0.3-1.0) L 10/07/17 15:16 Direct Bilirubin 0.16 mg/dL (0.0-0.2) 10/07/17 15:16 AST 12 U/L (13-39) L 10/07/17 15:16 ALT 10 U/L (7-52) 10/07/17 15:16 Alkaline Phosphatase 47 U/L (34-104) 10/07/17 15:16 C-Reactive Protein 7.6 mg/dL (0.0-0.9) H 10/07/17 15:16 Total Protein 6.1 gm/dL (6.0-8.3) 10/07/17 15:16 Albumin 4.0 gm/dL (4.2-5.5) L 10/07/17 15:16 Globulin 2.1 gm/dL 10/07/17 15:16 Albumin/Globulin Ratio 1.9 (1.0-1.8) H 10/07/17 15:16 Triglycerides 45 mg/dL (<150) 10/08/17 04:50 Cholesterol 72 mg/dL (<200) 10/08/17 04:50 LDL Cholesterol Direct 39 mg/dL (75-193) L 10/08/17 04:50 HDL Cholesterol 29 mg/dL (23-92) 10/08/17 04:50 Lipase 29 U/L (11-82) 10/07/17 15:16 Free T4 1.03 ng/dL (0.82-1.77) 10/07/17 15:16 TSH 0.45 uIU/ml (0.34-5.60) 10/08/17 04:50 Urine Source MIDSTREAM 10/07/17 17:30 Urine Color YELLOW 10/07/17 17:30 Urine Clarity CLEAR (CLEAR) 10/07/17 17:30 Urine pH 6.5 (4.6 - 8.0) 10/07/17 17:30 Ur Specific [place] <= 1.005 (1.005-1.030) 10/07/17 17:30 Urine Protein NEGATIVE mg/dL (NEGATIVE) 10/07/17 17:30 Urine Glucose (UA) NEGATIVE mg/dL (NEGATIVE) 10/07/17 17:30 Urine Ketones NEGATIVE mg/dL (NEGATIVE) 10/07/17 17:30 Urine Blood NEGATIVE (NEGATIVE) 10/07/17 17:30 Urine Nitrate NEGATIVE (NEGATIVE) 10/07/17 17:30 Urine Bilirubin NEGATIVE (NEGATIVE) 10/07/17 17:30 Urine Urobilinogen 0.2 E.U./dL (0.2 - 1.0) 10/07/17 17:30 Ur Leukocyte Esterase NEGATIVE (NEGATIVE) 10/07/17 17:30 Urine WBC 0-2 /hpf (0-5) 10/07/17 17:30 Ur Epithelial Cells OCCASIONAL /lpf (FEW) 10/07/17 17:30 Vancomycin Trough 5.7 ug/mL (10-20) L 10/09/17 17:30 Urine Opiates Screen NEGATIVE (NEGATIVE) 10/07/17 17:30 Urine Methadone Screen NEGATIVE (NEGATIVE) 10/07/17 17:30 Ur Barbiturates Screen NEGATIVE (NEGATIVE) 10/07/17 17:30 Ur Tricyclics Screen NEGATIVE (NEGATIVE) 10/07/17 17:30 Ur Phencyclidine Scrn NEGATIVE (NEGATIVE) 10/07/17 17:30 Amphetamines Screen POSITIVE (NEGATIVE) H 10/07/17 17:30 U Methamphetamines Scrn POSITIVE (NEGATIVE) H 10/07/17 17:30 U Benzodiazepines Scrn NEGATIVE (NEGATIVE) 10/07/17 17:30 U Cocaine Metab Screen NEGATIVE (NEGATIVE) 10/07/17 17:30 U Cannabinoids Screen POSITIVE (NEGATIVE) H 10/07/17 17:30 - Physical Exam Vitals and I&O: Vital Signs Temp 97.4 F 10/10/17 12:27 Pulse 57 10/10/17 12:27 Resp 20 10/10/17 12:27 BP 116/63 10/10/17 12:27 Pulse Ox 99 10/10/17 12:27 Intake & Output 10/09/17 10/10/17 10/10/17 18:59 06:59 18:59 Intake Total 300 600 Balance 300 600 Weight (lbs) 72.121 kg Intake: Intake, IV Amount 300 600 Piperacillin Sodium/ 50 100 Tazobact 3.375 gm In Sodium Chloride 0.9% 50 ml @ 100 mls/hr IV Q8HR [facility] Rx#:[id number] Vancomycin HCl 1.25 gm In 250 500 Sodium Chloride 0.9% 250 ml @ 165 mls/hr IV Q8H [facility] Rx#:[id number] Other: # Voids 3 Stool Characteristics Soft Active Medications: Current Medications Fluoxetine HCl (Prozac) 10 mg PO DAILY [facility] PRN Reason: Protocol Stop: 12/08/17 08:59 Dextrose/Sodium Chloride (D5-0.9%Ns) 1,000 mls @ 75 mls/hr IV .[id number] [facility] Stop: 12/06/17 22:44 Last Admin: 10/08/17 14:19 Dose: 75 mls/hr Piperacillin Sod/Tazobactam (Sod 3.375 gm/ Sodium Chloride) 50 mls @ 100 mls/ hr IV Q8HR [facility] Stop: 12/07/17 20:59 Last Admin: 10/10/17 13:02 Dose: 100 mls/hr Vancomycin HCl 1.5 gm/ Sodium (Chloride) 500 mls @ 250 mls/hr IV Q8H [facility] Stop: 12/09/17 17:59 Miscellaneous (Vancomycin Iv Per Pharmacy) 1 ea [facility] PRN PRN PRN Reason: PROTOCOL Stop: 12/06/17 22:28 Morphine Sulfate (Morphine) 1 mg IVP Q4HR PRN PRN Reason: pain Stop: 12/06/17 22:31 Last Admin: 10/08/17 00:18 Dose: 1 mg Mupirocin (Bactroban Oint) 1 appl TP BID [facility] Stop: 12/07/17 00:14 Last Admin: 10/10/17 09:03 Dose: Not Given Mupirocin (Bactroban Oint) 1 appl NS BID [facility] Stop: 10/13/17 09:01 Last Admin: 10/10/17 09:02 Dose: 1 appl Olanzapine (Zyprexa) 10 mg PO HS [facility] PRN Reason: Protocol Stop: 12/07/17 20:59 Ondansetron HCl (Zofran) 4 mg IV Q6H PRN PRN Reason: Nausea / Vomiting Stop: 12/06/17 22:33 - Procedures Procedures: Procedures Procedure Code Date GALEN SUBQ TISSUE 20 SQ CM/< 21762 10/07/17 DENTAL SURGERY PROCEDURE 05155 05/12/17 EXCISION OF L HAND SUBCU/FASCIA, OPEN APPROACH [id number] 10/07/17 EXCISION OF R HAND SUBCU/FASCIA, OPEN APPROACH [id number] 10/07/17 Assessment/Plan - Problem List Patient Problems: All Active Problems SWELLING, REDNESS AND PAIN TO BOTH HANDS (Acute)
--- NOTE | 2017-10-10 16:57 | Internal Medicine Prog Note ---
Internal Medicine Subjective - Subjective Patient is:: awake, verbal Per staff patient has:: tolerating meds Internal Medicine Objective - Results Result Diagrams: 10/08/17 04:50 10/08/17 04:50 Recent Labs: Laboratory Last Values WBC 7.4 Th/cmm (4.8-10.8) 10/08/17 04:50 RBC 4.28 Mil/cmm (4.30-5.70) L 10/08/17 04:50 Hgb 12.9 gm/dL (12-16) 10/08/17 04:50 Hct 38.9 % (41.0-60) L 10/08/17 04:50 MCV 90.8 fl (80-99) 10/08/17 04:50 MCH 30.0 pg (26.0-30.0) 10/08/17 04:50 MCHC Differential 33.1 pg (28.0-36.0) 10/08/17 04:50 RDW 12.5 % (11.5-20.0) 10/08/17 04:50 Plt Count 256 Th/cmm (150-400) 10/08/17 04:50 MPV 7.6 fl 10/08/17 04:50 Neutrophils % 61.3 % (40.0-80.0) 10/08/17 04:50 Lymphocytes % 24.3 % (20.0-50.0) 10/08/17 04:50 Monocytes % 10.0 % (2.0-10.0) 10/08/17 04:50 Eosinophils % 4.0 % (0.0-5.0) 10/08/17 04:50 Basophils % 0.4 % (0.0-2.0) 10/08/17 04:50 Sodium 138 mEq/L (136-145) 10/08/17 04:50 Potassium 3.7 mEq/L (3.5-5.1) 10/08/17 04:50 Chloride 110 mEq/L (98-107) H 10/08/17 04:50 Carbon Dioxide 24.4 mEq/L (21.0-31.0) 10/08/17 04:50 Anion Gap 7.3 (7.0-16.0) 10/08/17 04:50 BUN 7 mg/dL (7-25) 10/08/17 04:50 Creatinine 0.6 mg/dL (0.7-1.3) L 10/08/17 04:50 Est GFR ( Amer) > 60.0 ml/min (>90) 10/08/17 04:50 Est GFR (Non-Af Amer) > 60.0 ml/min 10/08/17 04:50 BUN/Creatinine Ratio 11.7 10/08/17 04:50 Glucose 106 mg/dL (70-105) H 10/08/17 04:50 POC Glucose 133 MG/DL (70 - 105) H 10/07/17 22:50 Hemoglobin A1c % 4.9 % (4.0-6.0) 10/07/17 15:16 Whole Bld Lactic Acid 1.43 mmol/L (0.60-1.99) 10/07/17 17:20 Calcium 8.7 mg/dL (8.6-10.3) 10/08/17 04:50 Magnesium 1.8 mg/dL (1.9-2.7) L 10/07/17 15:16 Total Bilirubin 0.2 mg/dL (0.3-1.0) L 10/07/17 15:16 Direct Bilirubin 0.16 mg/dL (0.0-0.2) 10/07/17 15:16 AST 12 U/L (13-39) L 10/07/17 15:16 ALT 10 U/L (7-52) 10/07/17 15:16 Alkaline Phosphatase 47 U/L (34-104) 10/07/17 15:16 C-Reactive Protein 7.6 mg/dL (0.0-0.9) H 10/07/17 15:16 Total Protein 6.1 gm/dL (6.0-8.3) 10/07/17 15:16 Albumin 4.0 gm/dL (4.2-5.5) L 10/07/17 15:16 Globulin 2.1 gm/dL 10/07/17 15:16 Albumin/Globulin Ratio 1.9 (1.0-1.8) H 10/07/17 15:16 Triglycerides 45 mg/dL (<150) 10/08/17 04:50 Cholesterol 72 mg/dL (<200) 10/08/17 04:50 LDL Cholesterol Direct 39 mg/dL (75-193) L 10/08/17 04:50 HDL Cholesterol 29 mg/dL (23-92) 10/08/17 04:50 Lipase 29 U/L (11-82) 10/07/17 15:16 Free T4 1.03 ng/dL (0.82-1.77) 10/07/17 15:16 TSH 0.45 uIU/ml (0.34-5.60) 10/08/17 04:50 Urine Source MIDSTREAM 10/07/17 17:30 Urine Color YELLOW 10/07/17 17:30 Urine Clarity CLEAR (CLEAR) 10/07/17 17:30 Urine pH 6.5 (4.6 - 8.0) 10/07/17 17:30 Ur Specific [place] <= 1.005 (1.005-1.030) 10/07/17 17:30 Urine Protein NEGATIVE mg/dL (NEGATIVE) 10/07/17 17:30 Urine Glucose (UA) NEGATIVE mg/dL (NEGATIVE) 10/07/17 17:30 Urine Ketones NEGATIVE mg/dL (NEGATIVE) 10/07/17 17:30 Urine Blood NEGATIVE (NEGATIVE) 10/07/17 17:30 Urine Nitrate NEGATIVE (NEGATIVE) 10/07/17 17:30 Urine Bilirubin NEGATIVE (NEGATIVE) 10/07/17 17:30 Urine Urobilinogen 0.2 E.U./dL (0.2 - 1.0) 10/07/17 17:30 Ur Leukocyte Esterase NEGATIVE (NEGATIVE) 10/07/17 17:30 Urine WBC 0-2 /hpf (0-5) 10/07/17 17:30 Ur Epithelial Cells OCCASIONAL /lpf (FEW) 10/07/17 17:30 Vancomycin Trough 5.7 ug/mL (10-20) L 10/09/17 17:30 Urine Opiates Screen NEGATIVE (NEGATIVE) 10/07/17 17:30 Urine Methadone Screen NEGATIVE (NEGATIVE) 10/07/17 17:30 Ur Barbiturates Screen NEGATIVE (NEGATIVE) 10/07/17 17:30 Ur Tricyclics Screen NEGATIVE (NEGATIVE) 10/07/17 17:30 Ur Phencyclidine Scrn NEGATIVE (NEGATIVE) 10/07/17 17:30 Amphetamines Screen POSITIVE (NEGATIVE) H 10/07/17 17:30 U Methamphetamines Scrn POSITIVE (NEGATIVE) H 10/07/17 17:30 U Benzodiazepines Scrn NEGATIVE (NEGATIVE) 10/07/17 17:30 U Cocaine Metab Screen NEGATIVE (NEGATIVE) 10/07/17 17:30 U Cannabinoids Screen POSITIVE (NEGATIVE) H 10/07/17 17:30 - Physical Exam Vitals and I&O: Vital Signs Temp 97.6 F 10/10/17 16:00 Pulse 61 10/10/17 16:00 Resp 18 10/10/17 16:00 BP 118/69 10/10/17 16:00 Pulse Ox 99 10/10/17 16:00 Intake & Output 10/09/17 10/10/17 10/10/17 18:59 06:59 18:59 Intake Total 300 600 Balance 300 600 Weight (lbs) 72.121 kg Intake: Intake, IV Amount 300 600 Piperacillin Sodium/ 50 100 Tazobact 3.375 gm In Sodium Chloride 0.9% 50 ml @ 100 mls/hr IV Q8HR [facility] Rx#:[id number] Vancomycin HCl 1.25 gm In 250 500 Sodium Chloride 0.9% 250 ml @ 165 mls/hr IV Q8H [facility] Rx#:[id number] Other: # Voids 3 Stool Characteristics Soft Active Medications: Current Medications Fluoxetine HCl (Prozac) 10 mg PO DAILY [facility] PRN Reason: Protocol Stop: 12/08/17 08:59 Dextrose/Sodium Chloride (D5-0.9%Ns) 1,000 mls @ 75 mls/hr IV .[id number] [facility] Stop: 12/06/17 22:44 Last Admin: 10/08/17 14:19 Dose: 75 mls/hr Piperacillin Sod/Tazobactam (Sod 3.375 gm/ Sodium Chloride) 50 mls @ 100 mls/ hr IV Q8HR [facility] Stop: 12/07/17 20:59 Last Admin: 10/10/17 13:02 Dose: 100 mls/hr Vancomycin HCl 1.5 gm/ Sodium (Chloride) 500 mls @ 250 mls/hr IV Q8H [facility] Stop: 12/09/17 17:59 Miscellaneous (Vancomycin Iv Per Pharmacy) 1 ea [facility] PRN PRN PRN Reason: PROTOCOL Stop: 12/06/17 22:28 Morphine Sulfate (Morphine) 1 mg IVP Q4HR PRN PRN Reason: pain Stop: 12/06/17 22:31 Last Admin: 10/08/17 00:18 Dose: 1 mg Mupirocin (Bactroban Oint) 1 appl NS BID [facility] Stop: 10/13/17 09:01 Last Admin: 10/10/17 16:35 Dose: 1 appl Neomycin/Polymyxin/Bacitracin (Triple Antibiotic Pkt) 1 pkt TP DAILY [facility] Stop: 12/10/17 08:59 Olanzapine (Zyprexa) 10 mg PO HS [facility] PRN Reason: Protocol Stop: 12/07/17 20:59 Ondansetron HCl (Zofran) 4 mg IV Q6H PRN PRN Reason: Nausea / Vomiting Stop: 12/06/17 22:33 General: alert HEENT: NC/AT, PERRLA Neck: Supple Lungs: CTAB Cardiovascular: RRR, Normal S1, Normal S2, without murmur Abdomen: soft, non-tender, non-distended, positive bowel sound - Procedures Procedures: Procedures Procedure Code Date GALEN SUBQ TISSUE 20 SQ CM/< 57267 10/07/17 DENTAL SURGERY PROCEDURE [id number] 05/12/17 EXCISION OF L HAND SUBCU/FASCIA, OPEN APPROACH [id number] 10/07/17 EXCISION OF R HAND SUBCU/FASCIA, OPEN APPROACH [id number] 10/07/17
[2017-10-10] MEDS ORDERED: Vancomycin HCl 1.5 GM in Sodium Chloride 0.9% 500 ML IV SCH (18:00)
[2017-10-11] MEDS ORDERED: Triple Antibiotic 0.94 gm Pkt TP SCH (09:00)
== END 2017-10-10 18:40 | disposition home or self-care (01) | DRG 364 ==
LOC: ER 14:30 → MSI 20:57
PROVIDERS: ADMIT Internal Medicine; ATTEND Internal Medicine
PROC: 0JBK0ZZ Excision of Left Hand Subcutaneous Tissue and Fascia, Open Approach (ICD-10-PCS; principal; 2017-10-09)
PROC: 0JBJ0ZZ Excision of Right Hand Subcutaneous Tissue and Fascia, Open Approach (ICD-10-PCS; 2017-10-09)
DX: L03.114 Cellulitis of left upper limb (principal); F20.9 Schizophrenia, unspecified; L23.7 Allergic contact dermatitis due to plants, except food; F12.10 Cannabis abuse, uncomplicated; L03.113 Cellulitis of right upper limb; F15.10 Other stimulant abuse, uncomplicated; F17.210 Nicotine dependence, cigarettes, uncomplicated; F19.159 Other psychoactive substance abuse with psychoactive substance-induced psychotic disorder, unspecified; L02.512 Cutaneous abscess of left hand; L02.511 Cutaneous abscess of right hand; F41.9 Anxiety disorder, unspecified; E86.0 Dehydration; F32.9 Major depressive disorder, single episode, unspecified; Z91.81 History of falling; Z88.2 Allergy status to sulfonamides; Z91.19 Patient's noncompliance with other medical treatment and regimen; Z59.0 Homelessness
CPT/HCPCS: 36415-UA; 71045-TC; 80048-TC; 80053-TC; 80061-TC; 80076-TC; 80202-TC; 80307; 81001-TC; 82948-90; 83036-90; 83605; 83690-TC; 83735-TC; 84439-90; 84443-TC; 85025-TC; 86141-TC; 87070-90; 87075-90; 87086-90; 87205-90; 93005; 93880-TC; J2270; J2543; J2704; J3370; J7030; J7040; J7042; V2790; X5958; Z7610

== ENCOUNTER 2018-04-22 11:21 | Emergency (ER) | payer OTHER ==
--- NOTE | 2018-04-22 12:59 | Diagnostic Imaging Report ---
Right hand (5 views) HISTORY: Pain, trauma No acute bony abnormalities. No fractures. Joint spaces appear normal. IMPRESSION: No acute bony abnormalities. In the presence of recent trauma and persistent symptoms, a repeat radiograph in 5-7 days may be helpful for detection of a subtle or occult fracture.
--- NOTE | 2018-04-22 13:00 | ED Physician Chart ---
ED Chief Complaint/HPI - Patient Information Date Seen:: 04/22/18 Time Seen:: 12:42 Chief Complaint:: rt hand pain History of Present Illness:: rt hand with poc kendall scabs and swelling dorsum hand Allergies:: Allergies Allergy/AdvReac Type Severity Reaction Status Date / Time Sulfa (Sulfonamide Allergy Verified 01/08/17 17:50 Antibiotics) Vitals:: Vital Signs - 8 hr 04/22/18 11:29 Temp 98.2 F HR 88 RR 16 BP 137/83 O2 Sat % 99 ED Review of Systems - Review of Systems General/Constitutional: No fever Skin: Skin lesions, No skin lesions (kendall and scabs throughout) Head: No headache Eyes: No loss of vision ENT: No earache Neck: No neck pain Pulmonary: No SOB GI: No vomiting G/U: No dysuria Musculoskeletal: Bone or joint pain Endocrine: No polyuria Allergic/Immuno: No urticaria Neurological: No syncope Family Medical History - Family Member Mother History Unknown: Yes Living Status: Still Living Hx Family Cancer: No Hx Family Hypertension: Yes Hx Family Diabetes: No Hx Family Seizures: No Hx Family Dementia: No Hx Family HIV: No Hx Family Hepatitis: No ED Septic Shock - . Is Septic Shock (SBP<90, OR Lactate>4 mmol\L) present?: No - <6hrs of presentation: Vital Signs: Vital Signs - 8 hr 04/22/18 11:29 Temp 98.2 F HR 88 RR 16 BP 137/83 O2 Sat % 99 ED Reassessment (Disposition) - Reassessment Reassessment Condition:: Improved - Diagnosis Diagnosis:: rt hand swelling pain no obvious trauma - Aftercare/Follow up Instructions Aftercare/Follow-Up Instructions:: Counseled pt regarding lab results/diagnosis & need follow up Medication Prescribed:: amox - Patient Disposition Discharge/Transfer:: Home Condition at Disposition:: Stable
== END 2018-04-22 13:18 | disposition home or self-care (01) ==
LOC: ER 11:21
DX: M25.541 Pain in joints of right hand (principal); M25.441 Effusion, right hand; Z88.2 Allergy status to sulfonamides
CPT/HCPCS: 73130-TC-RT; Z7502

== ENCOUNTER 2018-10-25 08:28 | Emergency (ER) | payer OTHER ==
[2018-10-25] MEDS ORDERED: Haloperidol Lactate 5 mg/mL 1mL Vial IM STA (09:20)
[2018-10-25] MEDS ORDERED: Haloperidol Lactate 5 mg/mL 1mL Vial ONE (09:25)
--- NOTE | 2018-10-25 10:10 | ED Physician Chart ---
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 Pain, weakness, dizziness, paresthesias, vertigo, visual or gait changes, or urinary s/s; pt''s last tetanus shot: > 5 years Allergies:: Allergies Allergy/AdvReac Type Severity Reaction Status Date / Time Sulfa (Sulfonamide Allergy Verified 01/08/17 17:50 Antibiotics) Vitals:: Vital Signs - 8 hr 10/25/18 08:38 Temp 97.2 F HR 89 RR 16 BP 135/89 O2 Sat % 99 Historian:: Patient Review:: Nurse's Note Reviewed, Old Chart Reviewed ED Review of Systems - Review of Systems General/Constitutional: No fever, No chills, No weight loss, No weakness, No diaphoresis, No edema, No loss of appetite Skin: No skin lesions, No rash, No bruising Head: No headache, No light-headedness Eyes: No loss of vision, No pain, No diplopia ENT: No earache, No nasal drainage, No sore throat, No tinnitus Neck: No neck pain, No swelling, No thyromegaly, No stiffness, No mass noted Cardio Vascular: No chest pain, No palpitations, No PND, No orthopnea, No edema Pulmonary: No SOB, No cough, No sputum, No wheezing GI: No nausea, No vomiting, No diarrhea, No pain, No melena, No hematochezia, No constipation, No hematemesis G/U: No dysuria, No frequency, No hematuria, No nacturia Musculoskeletal: No bone or joint pain, No back pain, No muscle pain Endocrine: No polyuria, No polydipsia Psychiatric: No prior psych history, No depression, No anxiety, No suicidal ideation, No homicidal ideation, No auditory hallucination, No visual hallucination Hematopoietic: No bruising, No lymphadenopathy Allergic/Immuno: No urticaria, No angioedema Neurological: No syncope, No focal symptoms, No weakness, No paresthesia, No headache, No seizure, No dizziness, No confusion, No vertigo ED Past Medical History - Past Medical History Obtainable: Yes Past Medical History: No significant medical hx Family History: None Social History: Smoker, No Alcohol, No Drug Use, Single, Lives With Parents Surgical History: None Psychiatricy History: None Medication: Reviewed Family Medical History - Family Member Mother History Unknown: Yes Living Status: Still Living Hx Family Cancer: No Hx Family Hypertension: Yes Hx Family Diabetes: No Hx Family Seizures: No Hx Family Dementia: No Hx Family HIV: No Hx Family Hepatitis: No ED Physical Exam - Physical Examination General/Constitutional: Awake, Well-developed, well-nourished, Alert, No distress, GCS 15, Non-toxic appearing, Ambulatory Head: Atraumatic Eyes: Lids, conjuctiva normal, PERRL, EOMI Skin: Nl inspection, No rash, No skin lesions, No ecchymosis, Well hydrated, No lymphadenopathy Other Skin comments:: small left hand abrasion; no cellulitis ENMT: External ears, nose nl, TM canals nl, Nasal exam nl, Lips, teeth, gums nl , Oropharynx nl, Tonsils nl Neck: Nontender, Full ROM w/o pain, No JVD, No nuchal rigidity, No bruit, No mass, No stridor Other Neck comments:: supple; no meningeal signs; no cervical tenderness; no bruits Respiratory: Nl effort/Exclusion, Clear to Auscultation, No Wheeze/Rhonchi/Rales Cardio Vascular: RRR, No murmur, gallop, rubs, NL S1 S2, Carotid/Femoral/Distal pulses equal bilaterally GI: No tenderness/rebounding/guarding, No organomegaly, No hernia, Normal BS's, Nondistended, No mass/bruits, No McBurney tenderness, Rectum exam nl Other GI comments:: no pulsatile masses; good BS : No CVA tenderness Extremities: No tenderness or effusion, Full ROM, normal strength in all extremities, No edema, Normal digits & nails Other Extremities comments:: + LMF: PIP Dislocation; good motor, tendon, and sensory functions; good NV functions Neuro/Psych: Alert/oriented, DTR's symmetric, Normal sensory exam, Normal motor strength, Judgement/insight normal, Mood normal, Normal gait, No focal deficits Other Neuro/Psych comments:: no focal signs Misc: Normal back, No paraspinal tenderness ED Labs/Radiology/EKG Results - Radiology Results Comments:: + LMF-PIP Dislocation; Post-Reduction X-Rays: Good Alignment of the PIP Joint of LMF; no Fx ED Assessment - Procedures Informed Consent: Procedure/risk/benefits explained by MD: Yes Comments:: Successful Reduction of LMF-PIP Dislocation Splint Care: Splint applied Post Procedure/Splint Exam: No Active Bleeding, Full Range of Motion, Neuro/ Vascular Exam Comments:: no ligament instability; good motor, tendon, and sensory functions; good NV functions ED Septic Shock - . Is Septic Shock (SBP<90, OR Lactate>4 mmol\L) present?: No - <6hrs of presentation: Vital Signs: Vital Signs - 8 hr 10/25/18 08:38 Temp 97.2 F HR 89 RR 16 BP 135/89 O2 Sat % 99 ED Reassessment (Disposition) - Reassessment Reassessment:: pt is asymptomatic upon discharge Reassessment Condition:: Improved - Diagnosis Diagnosis:: Left Middle Finger Dislocation; Left Hand Abrasion; S/P LMF-PIP Joint Reduction - Aftercare/Follow up Instructions Aftercare/Follow-Up Instructions:: Counseled pt regarding lab results/diagnosis & need follow up, Refer to Discharge Instructions, Counseled pt & family regarding lab results/diagnosis & need follow up - Patient Disposition Discharge/Transfer:: Home Condition at Disposition:: Stable, Improved (X-Rays Instructions; RTER prn if existing s/s reoccur and/or get worse and/or any other new s/s occur; ACIs given for all above Dx; Refer to Hand Surgeon Specialist/Orthopedist/Art Coordinator TAMRA; F/U with PMD in one day or prn; RTER prn if concerned)
--- NOTE | 2018-10-25 10:24 | Diagnostic Imaging Report ---
Left hand (3 views) HISTORY: Pain, trauma There is dislocation of the third middle phalanx. Assessment of the remaining fingers limited due to flexion. No definite fractures are seen. IMPRESSION: 1. Limited exam due to difficulty in patient positioning 2. Dislocation third middle phalanx
--- NOTE | 2018-10-25 10:24 | Diagnostic Imaging Report ---
Left hand (3 views) HISTORY: Dislocation Compared with the prior exam performed earlier in the day, there has been reduction in the previously noted dislocation about the third PIP joint. No fractures are seen. IMPRESSION: 1. Reduction previously noted dislocation
== END 2018-10-25 10:12 | disposition home or self-care (01) ==
LOC: ER 08:28
DX: S63.283A Dislocation of proximal interphalangeal joint of left middle finger, initial encounter (principal); F17.200 Nicotine dependence, unspecified, uncomplicated; Z88.2 Allergy status to sulfonamides; X58.XXXA Exposure to other specified factors, initial encounter; Y93.89 Activity, other specified; Y92.89 Other specified places as the place of occurrence of the external cause; Y99.8 Other external cause status
CPT/HCPCS: 73130-TC-LT; J1200; J1630; J2060

== ENCOUNTER 2018-12-02 09:44 | Emergency (ER) | payer OTHER ==
--- NOTE | 2018-12-02 10:36 | ED Physician Chart ---
ED Chief Complaint/HPI - Patient Information Date Seen:: 12/02/18 Time Seen:: 10:05 Chief Complaint:: R index finger pain for 2 days. History of Present Illness:: Pt came in by private auto because of right index finger pain for at least 2 days. Pt states that his right index finger was caught in moving parts in his bicycle when he was carrying it. No other injury or bodily pain. Allergies:: Allergies Allergy/AdvReac Type Severity Reaction Status Date / Time Sulfa (Sulfonamide Allergy Verified 01/08/17 17:50 Antibiotics) Vitals:: Vital Signs - 8 hr 12/02/18 10:00 Temp 97.8 F HR 82 RR 17 BP 148/87 O2 Sat % 97 Historian:: Patient Family MD/PCP:: unknown. LMP:: N/A Review:: Nurse's Note Reviewed ED Review of Systems - Review of Systems General/Constitutional: No fever, No weight loss, No weakness, No edema, No loss of appetite Skin: No rash Head: No headache, No light-headedness Eyes: No loss of vision, No pain, No diplopia ENT: No earache, No nasal drainage, No sore throat Neck: No neck pain, No swelling, No stiffness, No mass noted Cardio Vascular: No chest pain Pulmonary: No SOB, No cough, No wheezing GI: No nausea, No vomiting, No pain G/U: No dysuria, No frequency, No hematuria Musculoskeletal: Other (right index finger pain, see HPI.) Endocrine: No polyuria, No polydipsia Psychiatric: No prior psych history Hematopoietic: No bruising, No lymphadenopathy Allergic/Immuno: No urticaria, No angioedema Neurological: No syncope, No focal symptoms, No weakness, No paresthesia, No headache, No confusion ED Past Medical History - Past Medical History Past Medical History: No significant medical hx Family History: None Social History: Smoker (Pt has been informed about health risks associated with tobacco use and has been advised to quit. Pt has been encouraged to enroll in a smoking cessation program. Pt acknowledges understanding.), No Alcohol, Illicit Drug Use (Occasional marijuana and methamphetamine. Pt has been informed about health risks associated with illicit drug use and has been advised to stop. Pt has been encouraged to enroll in a drug rehab. program. Pt acknowledges understanding.), Single, Other (lives with his older brother Moe.) Employment:: unemployed. Surgical History: None Psychiatricy History: None Medication: None Family Medical History - Family Member Mother History Unknown: Yes Living Status: Still Living Hx Family Cancer: No Hx Family Hypertension: Yes Hx Family Diabetes: No Hx Family Seizures: No Hx Family Dementia: No Hx Family HIV: No Hx Family Hepatitis: No ED Physical Exam - Physical Examination General/Constitutional: Awake, Well-developed, well-nourished, Alert, No distress, GCS 15, Non-toxic appearing, Ambulatory Other Gen/Cons comments:: Breathes comfortably, speaks clearly, and interacts appropriately. Head: Atraumatic Eyes: Lids, conjuctiva normal, PERRL, EOMI Skin: No rash, Well hydrated, No lymphadenopathy ENMT: External ears, nose nl, Nasal exam nl, Oropharynx nl Neck: Nontender, Full ROM w/o pain, No nuchal rigidity, No mass Respiratory: Nl effort/Exclusion, Clear to Auscultation, No Wheeze/Rhonchi/Rales Cardio Vascular: No murmur, gallop, rubs GI: No tenderness/rebounding/guarding, No organomegaly, Normal BS's, Nondistended, No mass/bruits Other GI comments:: abdomen is soft. Other Extremities comments:: RUE: Remarkable for right index finger: There is ecchymosis at distal phalanx with subcutaneous collection of old blood. No open wound. Good ROM of all joints except flexion of DIP joint is limited because of swelling. No detectable motor/sensory/vascular deficit. Good distal capillary refill. Neuro/Psych: Alert/oriented (oriented x 3), No focal deficits Misc: Normal back, No paraspinal tenderness ED Labs/Radiology/EKG Results - Radiology Results Results: R index finger X-ray: Based on my interpretation, no acute fx or subluxation. Official report is pending. ED Septic Shock - . Is Septic Shock (SBP<90, OR Lactate>4 mmol\L) present?: No - <6hrs of presentation: Vital Signs: Vital Signs - 8 hr 12/02/18 10:00 Temp 97.8 F HR 82 RR 17 BP 148/87 O2 Sat % 97 ED Reassessment (Disposition) - Reassessment Reassessment:: 1130 Pt remains stable, alert and oriented x 3. R index finger X-ray findings have been reviewed with pt. Management plan has been discussed. Pt has significant subcutaneous collection of blood in distal phalanx of right index finger. Pt has been recommended to have drainage of old blood to alleviate pressure and pain, as well as to expedite the healing process. Pt, however, decides to leave AMA. Indications for the procedure, related benefits as well as risks, including risks for signing out AMA, have been well explained. Pt acknowledges understanding but still chooses to leave AMA. Pt has signed AMA form. The above discussion and signing of AMA form have been witnessed by my nurse Nikki. Pt has been explained that if he changes his mind, he is welcome to return anytime. Pt again acknowledges understanding and appreciates our effort in caring for him. Reassessment Condition:: Improved - Diagnosis Diagnosis:: R index finger contusion at distal phalanx with subcutaneous hematoma. - Aftercare/Follow up Instructions Medication Prescribed:: None - Patient Disposition Discharge/Transfer:: Against Medical Advice Time:: 11:30 Condition at Disposition:: Stable
--- NOTE | 2018-12-02 11:32 | Diagnostic Imaging Report ---
Right index finger (3 views) HISTORY: Pain, swelling No acute bony abnormalities. No fractures. Joint spaces appear normal. IMPRESSION: No acute focal bony abnormalities
== END 2018-12-02 11:44 | disposition left against medical advice (07) ==
LOC: ER 09:44
DX: S60.021A Contusion of right index finger without damage to nail, initial encounter (principal); F17.210 Nicotine dependence, cigarettes, uncomplicated; Z88.2 Allergy status to sulfonamides; W23.0XXA Caught, crushed, jammed, or pinched between moving objects, initial encounter; Y93.89 Activity, other specified; Y92.89 Other specified places as the place of occurrence of the external cause; Y99.8 Other external cause status
CPT/HCPCS: 73140-TC-F6; Z7502